=== PATIENT | female | born 1965 | race Caucasian/White ===

== ENCOUNTER 2019-04-21 14:43 | Emergency (ER) | payer OTHER ==
[2019-04-21 15:18] VITALS: BP 129/66
--- NOTE | 2019-04-21 16:17 | UC ---
Dizzy HPI HPI Summary: 53-year-old female who developed vertigo on Sunday morning to the point where she was bedridden for 24 hours with nystagmus and every time she moves she vomited. She did not have vomiting independent of movement. She denies any headache. She denies any sudden movement. Her states occasionally she sneezes a lot but he did not note that she had sneezed or done anything else subtly. She denies any recent illness. She denies any weakness. She has been keeping fluids down since Sunday but has not eaten much solid food because when she moves and has the vertigo then she gets nauseous and vomits. - History Of Current Complaint Chief Complaint: UCDizziness Stated Complaint: DIZZY/EAR COMP Time Seen by Provider: 04/21/19 15:22 Hx Obtained From: Patient Hx Last Menstrual Period: 12/13/13 ?: No Onset/Duration: Sudden Onset, Lasting Days, Other - She states the vertigo has almost completely resolved unless she moves her head a certain way however she' s had no further nystagmus. She has not vomited since yesterday. Timing: Minutes Severity Initially: Severe Severity Currently: Mild Pain Intensity: 0 Character: Head Spinning, Room Spinning Aggravating Factor(s): Change In Head Position Alleviating Factor(s): Rest, Other - Patient states she feels much better today and as long as she turns her head slowly she does not have symptoms. Associated Signs And Symptoms: Positive: Nausea, Vomiting, Decreased Oral Intake - Patient denies visual changes however she does state that she had nystagmus. - Allergies/Home Medications Allergies/Adverse Reactions: Allergies Allergy/AdvReac Type Severity Reaction Status Date / Time Penicillins Allergy Hives Verified 04/21/19 15:19 Home Medications: Home Medications Multivitamin [Multivitamins] 1 cap PO DAILY 04/21/19 [History Confirmed 04/21/19 ] PMH/Surg Hx/FS Hx/Imm Hx Previously Healthy: Yes Other GI/ History: Uterine fibroids - Surgical History Surgical History: None - Social History Alcohol Use: Daily Alcohol Amount: wine 1-2 daily at night Substance Use Type: None Smoking Status (MU): Never Smoked Tobacco Review of Systems All Other Systems Reviewed And Are Negative: Yes Eyes: Positive: Other - Patient had nystagmus the first 2 days of the vertigo but no longer. Genitourinary: Positive: Other - History of uterine fibroids, patient states she has one quite large one in her lower abdomen. Neurological: Positive: Headache - Patient states she only has a very minimal dull headache.. Negative: Weakness, Paresthesia, Numbness Is Patient Immunocompromised?: No Physical Exam Triage Information Reviewed: Yes Appearance: Well-Appearing, No Pain Distress, Well-Nourished Vital Signs: Initial Vital Signs Temp 98.4 F 04/21/19 15:14 Pulse 85 04/21/19 15:14 Resp 18 04/21/19 15:14 BP 129/66 04/21/19 15:14 Pulse Ox 100 04/21/19 15:14 Vital Signs Reviewed: Yes Eyes: Positive: Conjunctiva Clear - PERRLA, EOMI ENT: Positive: Hearing grossly normal, Pharynx normal, TMs normal, Uvula midline Neck: Positive: Supple, Nontender, No Lymphadenopathy Respiratory: Positive: Lungs clear, Normal breath sounds, No respiratory distress, No accessory muscle use Cardiovascular: Positive: RRR, No Murmur, Pulses Normal, Brisk Capillary Refill Abdomen Description: Positive: Nontender, No Organomegaly, Soft, Other: - Patient has a large mass in her lower abdomen which I can feel approximately 3 fingerbreadths below the umbilicus. The patient states this is a known uterine fibroid. It's firm on palpation and nontender.. Negative: CVA Tenderness (R), CVA Tenderness (L), Distended, Guarding, Hepatomegaly, Splenomegaly Musculoskeletal: Positive: Strength Intact, ROM Intact, Other: - Good peripheral pulses, neuro sensation and capillary refill, good arm and leg strength against resistance. Neurological: Positive: Alert, Muscle Tone Normal - Cranial nerves II through XII are intact, good finger to nose bilaterally, Romberg negative, good heel-to- crawley bilaterally, good heel-to-toe forward and backward, normal dystidiokinesis , negative eye drift, good finger strength and arm and leg strength against resistance. Psychological Exam: Normal Skin Exam: Normal Dizzy Course/Dx - Course Course Of Treatment: After further discussion with the patient and with Dr. Santacruz it's felt at this time she is improving. The patient prefers not to have a CT of the brain today. Because she's feeling better with minimal nausea and minimal vertigo I did give her a prescription for meclizine and Zofran. She is to go to the emergency room if she has any worsening symptoms or feels like she is going to pass out. I encouraged her to start drinking Gatorade, mari socorro, clear liquids, Jell-O, soup broth to get more nutrition in her since she has not eaten food in 4 days. She is to see her primary care provider if she has no improvement but no worsening of symptoms. Patient is agreeable to this plan of action. - Differential Dx/Diagnosis Provider Diagnosis: Vertigo Discharge ED - Sign-Out/Discharge Documenting (check all that apply): Patient Departure All imaging exams completed and their final reports reviewed: No Studies - Discharge Plan Condition: Fair Disposition: HOME Prescriptions: Meclizine TAB* [Antivert 12.5 TAB*] 25 mg PO TID PRN #15 tab PRN Reason: Dizziness Ondansetron TAB* [Zofran 4 MG Tab*] 4 mg PO Q8H PRN #15 tab PRN Reason: Nausea Patient Education Materials: Vertigo (DC) Forms: *Work Release Referrals: Lorena Bojorquez MD [Primary Care Provider] - Additional Instructions: Clear liquids today, soup and crackers later today when you have no further vomiting then gradually increase to your regular diet. Avoid spicy or fatty foods today. Definite follow up with your primary care provider if no improvement in 2-3 days. Go to the ER if you feel like you are going to pass out. Go to the emergency room if you have any worsening symptoms or if you have weakness on one side versus the other or you develop a severe headache. Avoid sudden movements - Billing Disposition and Condition Condition: FAIR Disposition: Home
== END 2019-04-21 16:29 | disposition home or self-care (01) ==
LOC: UCCORT 14:43
DX: R42 Dizziness and giddiness (principal); D25.9 Leiomyoma of uterus, unspecified; R11.2 Nausea with vomiting, unspecified; R51 Headache; Z88.0 Allergy status to penicillin
CPT/HCPCS: 99212; G0463